=== PATIENT | male | born 1980 | race American Indian/Alaskan Native ===

== ENCOUNTER 2019-10-19 11:53 | Emergency (ER) | payer SELFPAY ==
--- NOTE | 2019-10-19 14:43 | Event Note ---
ED Screening Note Date of service: 10/19/19 Time: 14:41 ED Screening Note: This is a 39-year-old male who presents the ED complaining of chest pain and shortness of breath times 3 days Associated fingertip and feet numbness This initial assessment/diagnostic orders/clinical plan/treatment(s) is/are subject to change based on patients health status, clinical progression and re- assessment by fellow clinical providers in the ED. Further treatment and workup at subsequent clinical providers discretion. Patient/guardian urged not to elope from the ED as their condition may be serious if not clinically assessed and managed. Initial orders include: cxr,chest protocol
--- NOTE | 2019-10-19 15:47 | XRay Report ---
CHEST 1 VIEW 10/19/2019 2:40 PM INDICATION / CLINICAL INFORMATION: Chest Pain. Abdominal pain. Shortness of breath and nausea. COMPARISON: None available. FINDINGS: SUPPORT DEVICES: None. HEART / MEDIASTINUM: No significant abnormality. LUNGS / PLEURA: No significant pulmonary or pleural abnormality. No pneumothorax. ADDITIONAL FINDINGS: No significant additional findings. IMPRESSION: 1. No acute findings. Signer Name: Meredith Glover MD Signed: 10/19/2019 3:43 PM Workstation Name: [id number]
[2019-10-19 15:59] LABS: BUN/Creatinine Ratio 16; Blood Urea Nitrogen 14 mg/dL (9-20); Calcium 9.8 mg/dL (8.4-10.2); Hemolysis Index 18
[2019-10-19 16:07] LABS: Basophils % (Auto) 0.4 % (0.0-1.8); Eosinophils # (Auto) 0.2 K/mm3 (0.0-0.4); Eosinophils % (Auto) 2.5 % (0.0-4.3); Hematocrit 46.3 % (35.5-45.6); Hemoglobin 15.7 gm/dl (11.8-15.2); Lymphocytes # (Auto) 2.5 K/mm3 (1.2-5.4); Lymphocytes % (Auto) 36.9 % (13.4-35.0); Mean Corpuscular HGB Conc 34 % (32-34); Mean Corpuscular Volume 90 fl (84-94); Monocytes # (Auto) 0.6 K/mm3 (0.0-0.8); Monocytes % (Auto) 8.8 % (0.0-7.3); Platelet Count 191 K/mm3 (140-440); Red Blood Count 5.14 M/mm3 (3.65-5.03); Red Cell Distribution Width 13.5 % (13.2-15.2)
--- NOTE | 2019-10-19 16:55 | Emergency Department Report ---
ED Chest Pain HPI - General Chief Complaint: Chest Pain Stated Complaint: STOMACH PAIN Time Seen by Provider: 10/19/19 16:26 Source: patient Mode of arrival: Ambulatory Limitations: No Limitations - History of Present Illness Initial Comments: 39-year-old -[place] male patient presents with complaints of bilateral lower chest pain intermittently x1 month. Patient describes the pain as aching and cramping and denies any current pain at this time. When the pain does occur he states it is around a 6 out of 10 in severity. He denies any prior medical history, however states he believes his father had heart disease. Patient also denies any shortness of breath, cough, fever/chills/sweats, abdominal pain, nausea/vomiting, heartburn, leg pain/swelling, recent long travel, or history of cancer/DVT/PE. Former smoker 3 years ago per patient. Severity scale (0 -10): 7 - Related Data Allergies Allergy/AdvReac Type Severity Reaction Status Date / Time No Known Allergies Allergy Unverified 10/19/19 12:49 Heart Score - HEART Score History: Slightly suspicious EKG: Normal Age: < 45 Risk factors: 1-2 risk factors Troponin: < normal limit HEART Score: 1 - Critical Actions Critical Actions: 0-3 pts:0.9-1.7%risk of adverse cardiac event.Candidate for discharge ED Review of Systems ROS: Stated complaint: STOMACH PAIN Other details as noted in HPI Constitutional: denies: chills, fever Respiratory: denies: cough, shortness of breath Cardiovascular: denies: palpitations, edema, syncope Gastrointestinal: denies: abdominal pain, nausea, vomiting Musculoskeletal: denies: back pain Neurological: denies: headache Hematological/Lymphatic: denies: easy bleeding ED Past Medical Hx - Past Medical History Previous Medical History?: No - Surgical History Past Surgical History?: No - Social History Smoking Status: Former Smoker Substance Use Type: Alcohol ED Physical Exam - General Limitations: No Limitations General appearance: alert, in no apparent distress - Head Head exam: Present: atraumatic, normocephalic - Eye Eye exam: Present: normal appearance. Absent: scleral icterus - ENT ENT exam: Present: mucous membranes moist - Neck Neck exam: Present: normal inspection - Respiratory Respiratory exam: Present: normal lung sounds bilaterally. Absent: respiratory distress - Cardiovascular Cardiovascular Exam: Present: regular rate, normal rhythm. Absent: systolic murmur, diastolic murmur, rubs, gallop - GI/Abdominal GI/Abdominal exam: Present: soft, normal bowel sounds. Absent: distended, tenderness, guarding, rebound, rigid - Extremities Exam Extremities exam: Present: normal inspection, calf tenderness (No swelling or tenderness noted to the legs bilaterally) - Back Exam Back exam: Present: normal inspection. Absent: CVA tenderness (R), CVA tenderness (L) - Neurological Exam Neurological exam: Present: alert, oriented X3 - Psychiatric Psychiatric exam: Present: normal affect, normal mood - Skin Skin exam: Present: warm, dry, intact, normal color. Absent: rash, cyanosis, d iaphoretic ED Course Vital Signs 10/19/19 10/19/19 10/19/19 12:50 15:24 15:30 Temperature 98.1 F 97.4 F L Pulse Rate 85 80 86 Respiratory 18 15 13 Rate Blood Pressure 150/100 Blood Pressure 150/100 [Left] Blood Pressure 161/101 144/100 [Right] O2 Sat by Pulse 97 99 100 Oximetry 10/19/19 10/19/19 10/19/19 15:46 16:00 16:16 Temperature Pulse Rate 87 83 96 H Respiratory 15 15 12 Rate Blood Pressure 155/106 155/106 153/90 Blood Pressure [Left] Blood Pressure [Right] O2 Sat by Pulse 98 100 96 Oximetry 10/19/19 10/19/19 10/19/19 16:30 16:46 17:00 Temperature Pulse Rate 92 H Respiratory 15 11 L 15 Rate Blood Pressure 153/90 143/99 143/99 Blood Pressure [Left] Blood Pressure [Right] O2 Sat by Pulse 100 99 97 Oximetry 10/19/19 10/19/19 10/19/19 17:15 17:30 17:45 Temperature Pulse Rate Respiratory 19 12 16 Rate Blood Pressure 134/98 134/98 134/98 Blood Pressure [Left] Blood Pressure [Right] O2 Sat by Pulse 92 99 98 Oximetry 10/19/19 10/19/19 10/19/19 18:00 18:15 18:30 Temperature Pulse Rate Respiratory 12 16 13 Rate Blood Pressure 134/98 130/95 130/95 Blood Pressure [Left] Blood Pressure [Right] O2 Sat by Pulse 99 95 99 Oximetry 10/19/19 10/19/19 10/19/19 18:45 19:00 19:16 Temperature Pulse Rate Respiratory 12 14 11 L Rate Blood Pressure 127/98 127/98 129/92 Blood Pressure [Left] Blood Pressure [Right] O2 Sat by Pulse 95 98 95 Oximetry 10/19/19 19:20 Temperature Pulse Rate 86 Respiratory 16 Rate Blood Pressure Blood Pressure [Left] Blood Pressure [Right] O2 Sat by Pulse 97 Oximetry ED Medical Decision Making - Lab Data Result diagrams: 10/19/19 15:25 10/19/19 15:25 Lab Results 10/19/19 10/19/19 10/19/19 Range/Units 15:25 15:25 15:25 WBC 6.7 (4.5-11.0) K/mm3 RBC 5.14 H (3.65-5.03) M/mm3 Hgb 15.7 H (11.8-15.2) gm/dl Hct 46.3 H (35.5-45.6) % MCV 90 (84-94) fl MCH 31 (28-32) pg MCHC 34 (32-34) % RDW 13.5 (13.2-15.2) % Plt Count 191 (140-440) K/mm3 Lymph % (Auto) 36.9 H (13.4-35.0) % [place] % (Auto) 8.8 H (0.0-7.3) % Eos % (Auto) 2.5 (0.0-4.3) % Baso % (Auto) 0.4 (0.0-1.8) % Lymph # 2.5 (1.2-5.4) K/mm3 [place] # 0.6 (0.0-0.8) K/mm3 Eos # 0.2 (0.0-0.4) K/mm3 Baso # 0.0 (0.0-0.1) K/mm3 Seg Neutrophils % 51.4 (40.0-70.0) % Seg Neutrophils # 3.4 (1.8-7.7) K/mm3 Sodium 144 (137-145) mmol/L Potassium 3.7 (3.6-5.0) mmol/L Chloride 103.0 (98-107) mmol/L Carbon Dioxide 25 (22-30) mmol/L Anion Gap 20 mmol/L BUN 14 (9-20) mg/dL Creatinine 0.9 (0.8-1.3) mg/dL Estimated GFR > 60 ml/min BUN/Creatinine Ratio 16 % Glucose 96 (75-100) mg/dL Calcium 9.8 (8.4-10.2) mg/dL Total Bilirubin 1.90 H (0.1-1.2) mg/dL Direct Bilirubin 0.2 (0-0.2) mg/dL Indirect Bilirubin 1.7 mg/dL AST 23 (5-40) units/L ALT 26 (7-56) units/L Alkaline Phosphatase 74 (35-129) units/L Troponin T < 0.010 (0.00-0.029) ng/mL Total Protein 7.8 (6.3-8.2) g/dL Albumin 5.2 H (3.9-5) g/dL Albumin/Globulin Ratio 2.0 % // Range/Units 17:38 WBC (4.5-11.0) K/mm3 RBC (3.65-5.03) M/mm3 Hgb (11.8-15.2) gm/dl Hct (35.5-45.6) % MCV (84-94) fl MCH (28-32) pg MCHC (32-34) % RDW (13.2-15.2) % Plt Count (140-440) K/mm3 Lymph % (Auto) (13.4-35.0) % [place] % (Auto) (0.0-7.3) % Eos % (Auto) (0.0-4.3) % Baso % (Auto) (0.0-1.8) % Lymph # (1.2-5.4) K/mm3 [place] # (0.0-0.8) K/mm3 Eos # (0.0-0.4) K/mm3 Baso # (0.0-0.1) K/mm3 Seg Neutrophils % (40.0-70.0) % Seg Neutrophils # (1.8-7.7) K/mm3 Sodium (137-145) mmol/L Potassium (3.6-5.0) mmol/L Chloride (98-107) mmol/L Carbon Dioxide (22-30) mmol/L Anion Gap mmol/L BUN (9-20) mg/dL Creatinine (0.8-1.3) mg/dL Estimated GFR ml/min BUN/Creatinine Ratio % Glucose (75-100) mg/dL Calcium (8.4-10.2) mg/dL Total Bilirubin (0.1-1.2) mg/dL Direct Bilirubin (0-0.2) mg/dL Indirect Bilirubin mg/dL AST (5-40) units/L ALT (7-56) units/L Alkaline Phosphatase (35-129) units/L Troponin T < 0.010 (0.00-0.029) ng/mL Total Protein (6.3-8.2) g/dL Albumin (3.9-5) g/dL Albumin/Globulin Ratio % - EKG Data -: No EKG Interpreted by Dc EKG shows normal: sinus rhythm Rate: normal - EKG Data Interpretation: normal EKG - Radiology Data Radiology results: report reviewed CHEST 1 VIEW 10/19/2019 2:40 PM INDICATION / CLINICAL INFORMATION: Chest Pain. Abdominal pain. Shortness of breath and nausea. COMPARISON: None available. FINDINGS: SUPPORT DEVICES: None. HEART / MEDIASTINUM: No significant abnormality. LUNGS / PLEURA: No significant pulmonary or pleural abnormality. No pneumothorax. ADDITIONAL FINDINGS: No significant additional findings. IMPRESSION: 1. No acute findings. - Medical Decision Making 39-year-old -[place] male patient presents with complaints of bilateral lower chest pain intermittently x1 month. No significant abnormalities are noted on CBC, CMP, chest x-ray, and troponin and EKG are normal. Patient continues to deny any current chest pain. PERC score = 0. His vitals are normal he is stable for discharge home with follow-up with cardiology. Patient blood pressure noted to be elevated and he denies any prior history of this. Recommend patient follows up with primary care within 2 days for blood pressure recheck and further evaluation. Strict return precautions were discussed in detail with patient who verbalizes understanding Critical care attestation.: If time is entered above; I have spent that time in minutes in the direct care of this critically ill patient, excluding procedure time. ED Disposition Clinical Impression: Elevated BP without diagnosis of hypertension Chest pain Qualifiers: Chest pain type: other chest pain Qualified Code(s): R07.89 - Other chest pain Disposition: - TO HOME OR SELFCARE Is pt being admited?: No Condition: Stable Instructions: Chest Pain (ED), Hypertension (ED) Referrals: ALEN SMITH [Staff Physician] - 3-[address] [facility] [Provider Group] - 10/23/19
[2019-10-19 17:02] LABS: Albumin 5.2 g/dL (3.9-5); Bilirubin,Direct 0.2 mg/dL (0-0.2)
[2019-10-19 19:20] VITALS: BP 129/92
== END 2019-10-19 19:20 | disposition home or self-care (01) ==
LOC: ED 11:53
DX: R07.89 Other chest pain (principal); I10 Essential (primary) hypertension; Z87.891 Personal history of nicotine dependence
CPT/HCPCS: 36415; 71045; 80048; 80076; 83880; 84484; 85025; 93005